=== PATIENT | male | born 1990 | race Two or more races ===

== ENCOUNTER 2019-05-07 13:07 | Emergency (ER) | payer BC, OTHER ==
[~2019-05-07] VITALS: Ht 200.7 cm; Wt 104.5 kg
[2019-05-07 14:13] VITALS: BP 148/84
[2019-05-07] MEDS ORDERED: ADACEL/BOOSTRIX VACCINE (DIPHTH/PERTUSS/ACELL/TETANUS)0.5ML SYR (90715) IM ONE (14:15)
== END 2019-05-07 14:13 | disposition home or self-care (01) ==
LOC: M ED 13:07
DX: S01.01XA Laceration without foreign body of scalp, initial encounter (principal); S00.03XA Contusion of scalp, initial encounter; S16.1XXA Strain of muscle, fascia and tendon at neck level, initial encounter; W22.8XXA Striking against or struck by other objects, initial encounter; Y92.099 Unspecified place in other non-institutional residence as the place of occurrence of the external cause; Y93.9 Activity, unspecified; Y99.9 Unspecified external cause status

== ENCOUNTER → 2019-11-16 | Outpatient (CLI) | payer BC ==
[2019-11-16 12:38] LABS: BASO % 0.3 % (0.0-1.0); EOS # 0.1 10^3/uL (0.0-0.5); EOS % 0.8 % (0.0-3.0); HEMATOCRIT 47.1 % (42.0-52.0); LYMPH # 1.6 10^3/uL (1.5-5.0); LYMPH % 25.1 % (24.0-44.0); MEAN CORPUSCULAR HEMOGLOBIN 30.4 pg (27.0-33.0); MEAN CORPUSCULAR VOLUME 89.5 fl (80.0-96.0); MONO # 0.5 10^3/uL (0.0-0.8); MONO % 7.3 % (0.0-5.0); NEUTROPHILS # 4.2 10^3/uL (1.5-8.5); NEUTROPHILS % 66.2 % (36.0-66.0); PLATELET COUNT, AUTOMATED 288 10^3/uL (150-450); RED BLOOD COUNT 5.26 10^6/uL (4.30-6.10); WHITE BLOOD COUNT 6.3 10^3/uL (4.0-10.0)
[2019-11-16 13:05] LABS: ALBUMIN 4.6 GM/DL (3.2-5.2); ALT/SGPT 31 U/L (12-78); BLOOD UREA NITROGEN 10 MG/DL (7-18); CALCIUM LEVEL 9.3 MG/DL (8.5-10.1); CARBON DIOXIDE LEVEL 26 MEQ/L (21-32); CHLORIDE LEVEL 106 MEQ/L (98-107); CREATININE FOR GFR 1.18 MG/DL (0.70-1.30); GLOMERULAR FILTRATION RATE > 60.0 (>60); GLUCOSE, FASTING 88 MG/DL (70-100); POTASSIUM SERUM 3.9 MEQ/L (3.5-5.1); SODIUM LEVEL 137 MEQ/L (136-145)
--- NOTE | 2019-11-16 15:53 | REP ---
REASON: Nausea, vomiting and diarrhea. KUB: FINDINGS: KUB shows the intestinal gas pattern to be nonspecific. The organ silhouettes insofar as delineated are unremarkable. There is no evidence of free intraperitoneal air. IMPRESSION: Nonspecific. The stool pattern is within normal limits. Electronically Signed by Gómez Rosales DO 11/17/2019 11:04 A
== END ==
LOC: M WUC 10:25
PROVIDERS: ATTEND Physician Assistant
DX: R11.2 Nausea with vomiting, unspecified (principal); R19.7 Diarrhea, unspecified

== ENCOUNTER → 2019-11-17 | Outpatient (CLI) | payer BC ==
[~2019-11-17] MED LIST: ISOVUE-370 76% 100ML VIAL As Ordered ONE
--- NOTE | 2019-11-17 11:48 | REP ---
CT ABDOMEN AND PELVIS WITH IV CONTRAST: TECHNIQUE: Axial contrast-enhanced images from the lung bases to the pubic symphysis using 100 mL Isovue-370 intravenous contrast material with multiplanar reformations. The visualized lung bases are clear. The liver, spleen, adrenals, pancreas and kidneys are normal in appearance. Gallbladder is grossly unremarkable. There is no abdominal aortic aneurysm. There is no adenopathy. There is no free air or free fluid. No bowel thickening is seen. The appendix is normal. No pelvic mass is seen. The urinary bladder is very mildly distended and grossly unremarkable. IMPRESSION: No acute abnormality is detected. Essentially negative exam. Electronically Signed by Chad Connolly MD 11/20/2019 10:17 P
== END ==
LOC: M RAD 09:56
PROVIDERS: ATTEND Physician Assistant
DX: R19.7 Diarrhea, unspecified (principal); R11.2 Nausea with vomiting, unspecified; R31.9 Hematuria, unspecified
CPT/HCPCS: 74177; Q9967

== ENCOUNTER → 2019-11-18 | Outpatient (REF) | payer BC | LOC: M LAB REF 10:36 | PROVIDERS: ATTEND Physician Assistant | DX: R11.2 Nausea with vomiting, unspecified (principal); R19.7 Diarrhea, unspecified ==

== ENCOUNTER → 2019-11-22 | Outpatient (CLI) | payer BC ==
[2019-11-22 19:13] LABS: BASO % 0.4 % (0.0-1.0); EOS # 0.1 10^3/uL (0.0-0.5); EOS % 1.3 % (0.0-3.0); HEMATOCRIT 48.2 % (42.0-52.0); LYMPH # 2.1 10^3/uL (1.5-5.0); LYMPH % 29.8 % (24.0-44.0); MEAN CORPUSCULAR HEMOGLOBIN 30.1 pg (27.0-33.0); MEAN CORPUSCULAR HGB CONC 33.2 g/dl (32.0-36.5); MEAN CORPUSCULAR VOLUME 90.6 fl (80.0-96.0); MONO # 0.5 10^3/uL (0.0-0.8); MONO % 6.6 % (0.0-5.0); NEUTROPHILS # 4.2 10^3/uL (1.5-8.5); NEUTROPHILS % 61.2 % (36.0-66.0); PLATELET COUNT, AUTOMATED 291 10^3/uL (150-450); RED BLOOD COUNT 5.32 10^6/uL (4.30-6.10); WHITE BLOOD COUNT 6.9 10^3/uL (4.0-10.0)
[2019-11-22 20:05] LABS: ALBUMIN 4.9 GM/DL (3.2-5.2); ALT/SGPT 34 U/L (12-78); AMYLASE 27 U/L (25-115); BILIRUBIN,TOTAL 1.1 MG/DL (0.2-1.0); BLOOD UREA NITROGEN 13 MG/DL (7-18); C REACTIVE PROTEIN QUANTITATIV < 0.30 MG/DL (0.00-0.30); CALCIUM LEVEL 9.7 MG/DL (8.5-10.1); CARBON DIOXIDE LEVEL 23 MEQ/L (21-32); CHLORIDE LEVEL 106 MEQ/L (98-107); CREATININE FOR GFR 1.23 MG/DL (0.70-1.30); GLOMERULAR FILTRATION RATE > 60.0 (>60); GLUCOSE, FASTING 65 MG/DL (70-100); LIPASE 75 U/L (73-393); POTASSIUM SERUM 3.8 MEQ/L (3.5-5.1); SODIUM LEVEL 140 MEQ/L (136-145)
[2019-11-23 11:32] LABS: HEPATITIS B SURFACE ANTIGEN NEGATIVE (NEGATIVE)
[2019-11-23 11:59] LABS: HEPATITIS B CORE ANTIBODY IGM NEGATIVE (NEGATIVE); HEPATITIS C VIRUS ABY INDEX 0.1 INDEX (<0.8)
[2019-11-23 12:02] LABS: HEPATITIS A ANTIBODY IGM NEGATIVE (NEGATIVE)
== END ==
LOC: M WUC 14:19
PROVIDERS: ATTEND Physician Assistant
DX: R10.84 Generalized abdominal pain (principal); R31.9 Hematuria, unspecified

== ENCOUNTER → 2019-11-24 | Outpatient (CLI) | payer BC ==
[2019-11-27 03:07] LABS: Lyme Disease IgG Ab 18 kDa Ban Absent (.); Lyme Disease IgG Ab 23 kDa Ban Absent (.); Lyme Disease IgG Ab 28 kDa Ban Absent (.); Lyme Disease IgG Ab 30 kDa Ban Absent (.); Lyme Disease IgG Ab 39 kDa Ban Absent (.); Lyme Disease IgG Ab 41 kDa Ban Absent (.); Lyme Disease IgG Ab 45 kDa Ban Absent (.); Lyme Disease IgG Ab 58 kDa Ban Absent (.); Lyme Disease IgG Ab 66 kDa Ban Absent (.); Lyme Disease IgG Ab 93 kDa Ban Absent (.); Lyme Disease IgG West Blot Int Negative (.); Lyme Disease IgG/IgM Antibodie <0.91 ISR (0.00-0.90); Lyme Disease IgM Ab 23 kDa Ban Present (.); Lyme Disease IgM Ab 39 kDa Ban Absent (.); Lyme Disease IgM Ab 41 kDa Ban Absent (.); Lyme Disease IgM Ab Quantitati 0.94 index (0.00-0.79); Lyme Disease IgM West Blot Int Negative (.)
== END ==
LOC: M WUC 12:37
PROVIDERS: ATTEND Physician Assistant
DX: R10.84 Generalized abdominal pain (principal); R11.2 Nausea with vomiting, unspecified

== ENCOUNTER → 2019-11-29 | Outpatient (REF) | payer BC ==
[2019-11-29 19:47] LABS: APPEARANCE, URINE CLEAR (CLEAR); BACTERIA, URINE AUTO NEGATIVE (NEGATIVE); BILIRUBIN, URINE AUTO NEGATIVE (NEGATIVE); BLOOD, URINE BLOOD 1+ (NEGATIVE); COLOR, URINE YELLOW (YELLOW); GLUCOSE, URINE (UA) AUTO NEGATIVE (NEGATIVE); KETONE, URINE AUTO NEGATIVE (NEGATIVE); LEUKOCYTE ESTERASE, URINE AUTO NEGATIVE (NEGATIVE); MUCUS, URINE SMALL (NEGATIVE); NITRITE, URINE AUTO NEGATIVE (NEGATIVE); PROTEIN, URINE AUTO NEGATIVE (NEGATIVE); RBC, URINE AUTO 12 /HPF (0-3); SPECIFIC GRAVITY URINE AUTO 1.027 (1.002-1.035); SQUAMOUS EPITHELIAL CELL UR AU 0 /HPF (0-6); UROBILINOGEN, URINE AUTO 0.2 mg/dL (0.0-2.0); WBC, URINE AUTO 0 /HPF (0-3)
== END ==
LOC: M SMT 17:12
PROVIDERS: ATTEND Nurse Practitioner Family
DX: R31.9 Hematuria, unspecified (principal)

== ENCOUNTER → 2020-01-11 | Outpatient (CLI) | payer BC ==
[2020-01-11 09:19] LABS: FREE T4 1.01 NG/DL (0.76-1.46); THYROID STIMULATING HORMONE 1.62 uIU/ML (0.358-3.740)
[2020-01-11 10:14] LABS: CLOSTRIDIUM DIFFICILE PCR NEGATIVE (NEGATIVE)
[2020-01-13 15:11] LABS: CHROMOGRANIN A 34.8 ng/mL (0.0-101.8); GASTRIN 26 pg/mL (0-115); TISSUE TRANSGLUTAMINASE IgA <2 U/mL (0-3)
[2020-01-25 09:08] LABS: CALPROTECTIN STOOL 22 ug/g (0-120); PANCREATIC ELASTASE STOOL 466 (>200)
== END ==
LOC: M LAB 06:55
PROVIDERS: ATTEND Internal Medicine Gastroenterology
DX: R19.7 Diarrhea, unspecified (principal); R63.4 Abnormal weight loss

== ENCOUNTER → 2020-02-05 | Outpatient (CLI) | payer BC | LOC: M LABSMTC 07:59 | PROVIDERS: ATTEND Anesthesiology | DX: Z01.812 Encounter for preprocedural laboratory examination (principal); Z20.828 Contact with and (suspected) exposure to other viral communicable diseases | CPT/HCPCS: C9803; U0003 ==

== ENCOUNTER 2020-02-10 08:31 | Day surgery (SDC) | payer BC ==
[~2020-02-10] VITALS: Ht 200.7 cm; Wt 100.2 kg
[~2020-02-10 08:31] MED LIST changes: -ISOVUE-370 76% 100ML VIAL As Ordered ONE; +NS 1,000 ML IV ONE
[2020-02-10] MEDS ORDERED: LIDOCAINE 2% 100MG/5ML SDV (FOR ANES.) As Ordered ONE (09:37)
[2020-02-10] MEDS ORDERED: propofoL 200 MG/20 ML VIAL As Ordered ONE ×2 (09:37→11:26)
[2020-02-10] MEDS ORDERED: fentaNYL 100 MCG/2 ML INJECTION (J3010) As Ordered ONE (11:02)
--- NOTE | 2020-02-10 11:15 | ROOR ---
Patient Name: Paul Allan Procedure Date: 02/10/2020 11:00 AM Date of : 1990 Age: 30 Room: [facility] Gender: Male Note Status: Finalized Procedure: Upper GI endoscopy Indications: Nausea, Weight loss Providers: Fuad CADE MD Referring MD: Brennan Johnson MD Requesting Provider: Medicines: Monitored Anesthesia Care Complications: No immediate complications. Procedure: Pre-Anesthesia Assessment: - The heart rate, respiratory rate, oxygen saturations, blood pressure, adequacy of pulmonary ventilation, and response to care were monitored throughout the procedure. The Endoscope was introduced through the mouth, and advanced to the second part of duodenum. The upper GI endoscopy was accomplished without difficulty. The patient tolerated the procedure well. Findings: The esophagus was normal. The stomach was normal. The examined duodenum was normal. Impression: - Normal esophagus. - Normal stomach. - Normal examined duodenum. - No specimens collected. Recommendation: - Observe patient's clinical course. Fuad Cade MD Fuad CADE MD 02/10/2020 11:14:58 AM Electronically signed by Fuad CADE MD Number of Addenda: 0 Note Initiated On: 02/10/2020 11:00 AM Estimated Blood Loss: Estimated blood loss: none.
--- NOTE | 2020-02-10 11:40 | ROOR ---
Patient Name: Paul Allan Procedure Date: 02/10/2020 11:00 AM Date of : 1990 Age: 30 Room: [facility] Gender: Male Note Status: Finalized Procedure: Colonoscopy Indications: Change in bowel habits, Weight loss Providers: Fuad CADE MD Referring MD: Brennan Johnson MD Requesting Provider: Medicines: Monitored Anesthesia Care Complications: No immediate complications. Procedure: Pre-Anesthesia Assessment: - The heart rate, respiratory rate, oxygen saturations, blood pressure, adequacy of pulmonary ventilation, and response to care were monitored throughout the procedure. The Colonoscope was introduced through the anus and advanced to 15 cm into the ileum. The colonoscopy was performed without difficulty. The patient tolerated the procedure well. The quality of the bowel preparation was good. Findings: The perianal and digital rectal examinations were normal. A 4 mm submucosal pale polyp was found in the proximal sigmoid colon (at 50 cm on withdrawal). The polyp was semi-pedunculated. The polyp was removed with a cold snare. Resection and retrieval were complete. Small Internal Hemorrhoids. The exam was otherwise normal throughout the examined colon. The terminal ileum appeared normal. Impression: - One 4 mm polyp in the proximal sigmoid colon, removed with a cold snare. Resected and retrieved. - Small Internal Hemorrhoids. - The colon is otherwise normal. - The examined portion of the ileum was normal. Recommendation: - Telephone endoscopist for pathology results in 2 weeks. - If the pathology report reveals adenomatous tissue, then repeat the colonoscopy for surveillance in 5 years. Fuad Cade MD Fuad CADE MD 02/10/2020 11:39:11 AM Electronically signed by Fuad CADE MD Number of Addenda: 0 Note Initiated On: 02/10/2020 11:00 AM Estimated Blood Loss: Estimated blood loss: none.
[2020-02-10 12:06] VITALS: BP 122/73
== END 2020-02-10 12:20 | disposition home or self-care (01) ==
LOC: M OPP 08:31
PROVIDERS: ATTEND Internal Medicine Gastroenterology
DX: R19.4 Change in bowel habit (principal); R63.4 Abnormal weight loss; R11.0 Nausea; R10.9 Unspecified abdominal pain; R19.7 Diarrhea, unspecified; D12.5 Benign neoplasm of sigmoid colon; K64.8 Other hemorrhoids; K58.9 Irritable bowel syndrome, unspecified; R12 Heartburn; Z83.3 Family history of diabetes mellitus
CPT/HCPCS: 43235; 45385; 88305; J3010

== ENCOUNTER 2024-04-27 10:18 | Emergency (ER) | payer OTHER ==
[~2024-04-27] VITALS: Ht 200.7 cm; Wt 123.7 kg
[2024-04-27 14:09] VITALS: BP 135/77; TEMP 96.7; O2SAT 100
[2024-04-27] MEDS ORDERED: METH-1164 PO (14:33)
[2024-04-27] MEDS: methocarbamoL 500 MG TAB PO ONE (14:37)
[2024-04-27] MEDS: KETOROLAC 60MG 2ML VIAL IM ONE (14:38)
== END 2024-04-27 14:55 | disposition home or self-care (01) ==
LOC: M ED 10:18
DX: M25.532 Pain in left wrist (principal); M62.830 Muscle spasm of back; V49.40XA Driver injured in collision with unspecified motor vehicles in traffic accident, initial encounter; Z79.899 Other long term (current) drug therapy; Y92.410 Unspecified street and highway as the place of occurrence of the external cause; Y93.89 Activity, other specified; Y99.9 Unspecified external cause status
CPT/HCPCS: 73090; 73110; 73130; 73502; 96372; 99283; J1885